=== PATIENT | female | born 1940 | race Caucasian/White ===

== ENCOUNTER 2016-11-16 14:28 | Emergency (ER) | payer OTHER ==
[~2016-11-16] VITALS: Ht 160 cm; Wt 80.3 kg
[~2016-11-16 14:28] MED LIST: AUGMENTIN500 MG PO; TRANSDERM-NITR0.4 MG TD
[2016-11-16 16:43] LABS: HEMATOCRIT 42.2 % (36.0-46.0); MCHC 32.9 G/DL (30.0-36.0); MCV 94.2 FL (83-99); MEAN PLAT.VOLUME 10.4 uM^3 (9.5-12.4); PLATELET COUNT 310 K/uL (156-360); RBC DIS.WIDTH-CV 14.6 % (11.8-14.6); RBC DIS.WIDTH-SD 49.9 % (39-53); RED BLOOD COUNT 4.48 M/uL (3.80-5.20); WHITE BLOOD COUNT 11.5 K/uL (4.1-10.2)
[2016-11-16 16:49] LABS: CHLORIDE 104 mEq/L (99-109); POTASSIUM 4.1 mEq/L (3.7-5.4); SODIUM 140 mEq/L (136-147)
[2016-11-16 16:52] LABS: GLUCOSE 96 mg/dL (70-99); PROTHROMBIN TIME 10.4 (9.2-11.2); PTT 26.7 (25-32)
[2016-11-16 16:53] LABS: ANION GAP 12 MEQ/L (2-14)
[2016-11-16 16:54] LABS: TOTAL BILIRUBIN 0.3 mg/dL (0.0-1.0)
[2016-11-16 16:55] LABS: ALKALINE PHOSPHATASE 70 IU/L (3-129); GFR ESTIMATE (CALCULATED) 42 mL/min/
[2016-11-16 16:56] LABS: UREA NITROGEN (BUN) 17 mg/dL (9-23)
[2016-11-16 17:27] VITALS: BP 145/76
== END 2016-11-16 17:44 | disposition left against medical advice (07) ==
LOC: EME 14:28
PROVIDERS: Physician Assistant
DX: R51 Headache (principal); I12.9 Hypertensive chronic kidney disease with stage 1 through stage 4 chronic kidney disease, or unspecified chronic kidney disease; N18.3 Chronic kidney disease, stage 3 (moderate); D72.829 Elevated white blood cell count, unspecified; Z53.20 Procedure and treatment not carried out because of patient's decision for unspecified reasons; Z87.891 Personal history of nicotine dependence
CPT/HCPCS: 70450; 80053; 81003; 85027; 85610; 85730; 99281; 99284

== ENCOUNTER 2017-04-06 09:05 | Inpatient (IN) | payer OTHER ==
[~2017-04-06] VITALS: Ht 160 cm; Wt 77.5 kg
[2017-04-06 10:29] LABS: EOSINOPHIL (%) 3.3 % (0-5); EOSINOPHIL COUNT 0.3 K/uL (0-0.3); IMMATURE GRANULOCYTE (%) 0.3 % (0.0-0.7); INSTRUMENT ABS NEUTROPHIL CT 6.3 K/uL; LYMPHOCYTE COUNT 1.3 K/uL (1.0-2.8); MCH 30.4 PG (29.0-34.0); MCHC 32.8 G/DL (30.0-36.0); MCV 92.7 FL (83-99); MEAN PLAT.VOLUME 10.2 uM^3 (9.5-12.4); MONOCYTE (%) 8.2 % (3-12); MONOCYTE COUNT 0.7 K/uL (0-0.8); NEUTROPHIL (%) 72.5 % (45-76); NEUTROPHIL COUNT 6.3 K/uL (1.8-6.4); PLATELET COUNT 291 K/uL (156-360); RBC DIS.WIDTH-CV 14.4 % (11.8-14.6); RBC DIS.WIDTH-SD 49.2 % (39-53); RED BLOOD COUNT 4.64 M/uL (3.80-5.20); WHITE BLOOD COUNT 8.7 K/uL (4.1-10.2)
[2017-04-06 10:40] LABS: CHLORIDE 105 mEq/L (99-109); POTASSIUM 4.3 mEq/L (3.7-5.4); SODIUM 138 mEq/L (136-147)
[2017-04-06 10:41] LABS: GLUCOSE 100 mg/dL (70-99)
[2017-04-06 10:43] LABS: ANION GAP 7 MEQ/L (2-14)
[2017-04-06 10:45] LABS: GFR ESTIMATE (CALCULATED) 46 mL/min/
[2017-04-06 10:46] LABS: UREA NITROGEN (BUN) 20 mg/dL (9-23)
[2017-04-06 13:58] LABS: TROP-I INTERPRETATION NEGATIVE; TROPONIN-I < 0.01 ng/mL (0.0-0.30)
[2017-04-06 14:05] LABS: HDL CHOLESTEROL 63 MG/DL (Desirable>=50); LDL CHOLESTEROL 140 mg/dL (Desirable<100); NON-HDL CHOLESTEROL 167 mg/dL (Desirable<160); TOTAL CHOLESTEROL 230 mg/dL (Desirable<200); TRIGLYCERIDES 137 MG/DL (Normal: <150)
[2017-04-06 16:35] VITALS: BP 156/84
[2017-04-06 19:35] LABS: TROP-I INTERPRETATION NEGATIVE; TROPONIN-I < 0.01 ng/mL (0.0-0.30)
[2017-04-06 19:42] VITALS: BP 170/85
[2017-04-06 23:48] VITALS: BP 179/87
[2017-04-07 01:51] LABS: TROP-I INTERPRETATION NEGATIVE; TROPONIN-I < 0.01 ng/mL (0.0-0.30)
[2017-04-07 08:55] VITALS: BP 174/71
[2017-04-07 11:55] VITALS: BP 160/88
[2017-04-07 16:49] VITALS: BP 162/89
[2017-04-07 19:24] VITALS: BP 162/81
[2017-04-07] MEDS ORDERED: VITAMIN D315 ML PO (20:31)
[2017-04-07] MEDS ORDERED: CALCIUM 250+D1 EACH PO (20:31)
[2017-04-07 23:36] VITALS: BP 175/81
[2017-04-08 04:09] VITALS: BP 179/81
[2017-04-08 09:10] VITALS: BP 162/80
[2017-04-08] MEDS ORDERED: PRAVACHOL20 MG PO (10:45)
[2017-04-08] MEDS ORDERED: ASPIR 8181 M1 PO (10:45)
[2017-04-08 11:12] VITALS: BP 150/87
== END 2017-04-08 12:15 | disposition home or self-care (01) | DRG 65 ==
LOC: EME 09:05 → EDOF 12:26 → ENRESERV 12:27 → 5SOUTH 15:47
PROVIDERS: Emergency Medicine; Internal Medicine
DX: I63.9 Cerebral infarction, unspecified (principal); G81.91 Hemiplegia, unspecified affecting right dominant side; R27.0 Ataxia, unspecified; I12.9 Hypertensive chronic kidney disease with stage 1 through stage 4 chronic kidney disease, or unspecified chronic kidney disease; N18.3 Chronic kidney disease, stage 3 (moderate); I44.7 Left bundle-branch block, unspecified; J44.9 Chronic obstructive pulmonary disease, unspecified; M79.606 Pain in leg, unspecified; G43.909 Migraine, unspecified, not intractable, without status migrainosus; Z68.30 Body mass index [BMI] 30.0-30.9, adult; Z82.3 Family history of stroke; Z83.3 Family history of diabetes mellitus; Z87.891 Personal history of nicotine dependence
CPT/HCPCS: 70450; 70551; 71010; 80048; 80061; 84443; 84484; 85025; 93005; 93306; 93880; 99202; 99281; 99285

== ENCOUNTER 2017-11-16 19:50 | Observation (INO) | payer OTHER ==
[~2017-11-16] VITALS: Ht 160 cm; Wt 73.2 kg
[~2017-11-16 19:50] MED LIST changes: +ASPIR 8181 M1 PO; +CALCIUM 250+D1 EACH PO; +PRAVACHOL20 MG PO; +VITAMIN D315 ML PO
[2017-11-16 20:29] LABS: HEMATOCRIT 40.2 % (36.0-46.0); HEMOGLOBIN 13.6 G/DL (11.9-15.5); MCH 29.8 PG (29.0-34.0); MCHC 33.8 G/DL (30.0-36.0); MCV 88.2 FL (83-99); PLATELET COUNT 325 K/uL (156-360); RBC DIS.WIDTH-CV 14.3 % (11.8-14.6); RBC DIS.WIDTH-SD 45.7 % (39-53); RED BLOOD COUNT 4.56 M/uL (3.80-5.20); WHITE BLOOD COUNT 8.3 K/uL (4.1-10.2)
[2017-11-16 20:34] LABS: CHLORIDE 103 mEq/L (99-109); POTASSIUM 3.9 mEq/L (3.7-5.4); SODIUM 138 mEq/L (136-147)
[2017-11-16 20:36] LABS: GLUCOSE 108 mg/dL (70-99)
[2017-11-16 20:40] LABS: CREATININE 1.5 mg/dL (0.6-1.3); GFR ESTIMATE (CALCULATED) 36 mL/min/
[2017-11-16 20:41] LABS: UREA NITROGEN (BUN) 33 mg/dL (9-23)
[2017-11-16 20:48] LABS: TROP-I INTERPRETATION NEGATIVE; TROPONIN-I < 0.01 ng/mL (0.0-0.30)
[2017-11-17] LABS: ALBUMIN 4.2 g/dL (3.2-4.8)
[2017-11-17] MEDS ORDERED: LITE COAT ASPI325 M1 PO (00:02)
[2017-11-17 00:03] LABS: TOTAL PROTEIN 7.6 g/dL (6.4-8.3)
[2017-11-17 00:05] LABS: TOTAL BILIRUBIN 0.2 mg/dL (0.0-1.0)
[2017-11-17 00:06] LABS: ALKALINE PHOSPHATASE 68 IU/L (3-129)
[2017-11-17 00:08] LABS: AST (GOT) 19 IU/L (2-34); DIRECT BILIRUBIN 0.1 mg/dL (0.0-0.3)
[2017-11-17 00:09] LABS: ALT (GPT) 18 IU/L (3-49); LIPASE 40 U/L (1.0-51.0)
[2017-11-17] MEDS ORDERED: COZAAR25 MG PO (00:33)
[2017-11-17 02:40] VITALS: BP 153/70
[2017-11-17 03:39] LABS: TROP-I INTERPRETATION NEGATIVE; TROPONIN-I < 0.01 ng/mL (0.0-0.30)
[2017-11-17 08:28] LABS: TROP-I INTERPRETATION NEGATIVE; TROPONIN-I < 0.01 ng/mL (0.0-0.30)
[2017-11-17 08:33] LABS: CHLORIDE 109 MEQ/L (99-109); CREATININE 1.2 MG/DL (0.6-1.3); GFR ESTIMATE (CALCULATED) 46 mL/min/; GLUCOSE 95 mg/dL (70-99); POTASSIUM 4.5 MEQ/L (3.7-5.4); SODIUM 140 MEQ/L (136-147); UREA NITROGEN (BUN) 27 mg/dL (9-23)
[2017-11-17 09:08] VITALS: BP 155/74
[2017-11-17 09:48] LABS: D-DIMER ELISA < 150.00 ng/mLDDU (<230)
== END 2017-11-17 11:22 | disposition home or self-care (01) ==
LOC: EME 19:50 → EDOF 11-17 00:33 → ENRESERV 11-17 00:34 → 5WEST 11-17 02:36 → ENPENDDIS 11-17 10:12 → 5WEST 11-17 11:22
PROVIDERS: Emergency Medicine; Internal Medicine; Physician Assistant
DX: R07.9 Chest pain, unspecified (principal); N17.9 Acute kidney failure, unspecified; R73.03 Prediabetes; I12.9 Hypertensive chronic kidney disease with stage 1 through stage 4 chronic kidney disease, or unspecified chronic kidney disease; N18.2 Chronic kidney disease, stage 2 (mild); Z90.710 Acquired absence of both cervix and uterus; Z82.3 Family history of stroke; Z87.891 Personal history of nicotine dependence; Z79.82 Long term (current) use of aspirin; J44.9 Chronic obstructive pulmonary disease, unspecified; I44.7 Left bundle-branch block, unspecified; Z88.1 Allergy status to other antibiotic agents; Z88.5 Allergy status to narcotic agent; Z88.8 Allergy status to other drugs, medicaments and biological substances; Z91.018 Allergy to other foods
CPT/HCPCS: 71046; 80048; 80076; 83690; 83880; 84484; 85027; 85379; 87502; 93005; 99281; 99284; G0378; J7030